=== PATIENT | female | born 1970 | race Caucasian/White ===

== ENCOUNTER → 2018-11-09 | Outpatient (CLI) | payer OTHER ==
[~2018-11-09] MED LIST: PROZ20CA11 PO; effexor xr PO
--- NOTE | 2018-11-09 11:31 | REP ---
Chest x-ray: Two views. History: Persistent cough . Comparison study: August 20, 2014 . Findings: The lungs are well inflated and free of infiltrate. The pleural angles are sharp. The heart size is normal. Pulmonary vasculature is not increased. No significant bony abnormality is seen. Impression: Negative chest x-ray. Electronically Signed by Santos Grayson MD 11/09/2018 11:23 A
--- NOTE | 2018-11-09 11:39 | REP ---
LEFT SHOULDER: Three views. HISTORY: Pain. FINDINGS: There is mild AC joint hypertrophy consistent with early osteoarthritis. AC and glenohumeral articulations are normally aligned. Periarticular soft tissues are normal. No fracture is seen. No erosive change is noted. IMPRESSION: Mild AC joint osteoarthritic hypertrophy. Otherwise negative left shoulder radiographs. Electronically Signed by Santos Grayson MD 11/09/2018 06:45 P
== END ==
LOC: M LRY 10:16
PROVIDERS: ATTEND Physician Assistant
DX: M19.012 Primary osteoarthritis, left shoulder (principal); R05 Cough; M25.512 Pain in left shoulder

== ENCOUNTER → 2019-03-06 | Outpatient (REF) | payer OTHER | LOC: M LAB REF 10:44 | PROVIDERS: ATTEND Physician Assistant | DX: N63.20 Unspecified lump in the left breast, unspecified quadrant (principal) ==

== ENCOUNTER → 2022-04-27 | Outpatient (CLI) | payer OTHER | LOC: M WHC 10:33 | PROVIDERS: ATTEND Physician Assistant | DX: N63.20 Unspecified lump in the left breast, unspecified quadrant (principal) | CPT/HCPCS: 76642; 77066; G0279 ==